=== PATIENT | female | born 1995 | race Caucasian/White ===

== ENCOUNTER 2022-06-21 12:38 | Emergency (ER) | payer BC, SELFPAY ==
[2022-06-21 13:04] VITALS: BP 120/79; PULSE 86; RESP 14; TEMP 37.1; O2SAT 97; BMI 25.7
--- NOTE | 2022-06-21 13:48 | ED_ITS ---
HPI - Anxiety General: Chief Complaint: Anxiety Stated Complaint: congestion, cough, covid positive Time Seen by Provider: 06/21/22 13:17 Source: patient Mode of arrival: ambulatory Limitations: no limitations History of Present Illness: 27-year-old female presents to the ER today for increased anxiety and shortness of breath associated with COVID. Patient reports last Friday she started not feeling well and became short of breath on Friday. Patient reports she was seen at her family doctor and tested positive for COVID. Patient reports she was given steroids and a nebulizer. Patient reports she began those however has had increased anxiety. Patient did stop the steroid this morning as she felt like it was making her feel worse. Patient reports she feels like she has something sitting on her chest. She reports her sats have been okay and her temperature has stayed down. She reports she has a mild cough. Patient feels this is more related to anxiety of knowing she has COVID and complications COVID can cause. Patient reports other than the prednisone she is taking NyQuil for symptoms. Review of Systems General: Reports: 10 or more systems reviewed and unremarkable except in HPI and below Physical Exam Const: COMMON NORMALS: no acute distress, average body habitus, patient oriented x3, no limitations, healthy appearing, alert and well nourished HENMT: COMMON NORMALS: normocephalic, external ears normal, Normal external nose present, Normal nasal mucous membranes and turbinates present and moist oral mucous membranes HEAD & SCALP: normocephalic NOSE: Normal external nose present and Normal nasal mucous membranes and turbinates present EXTERNAL EAR: Yes external ears normal Eye: COMMON NORMALS: conjunctivae normal CONJUNCTIVA: Yes conjunctivae normal Lymph: LYMPHATIC: no lymphadenopathy noted Resp: COMMON NORMALS: normal respiratory effort, No retractions, No use of accessory muscles and clear to auscultation bilaterally AUSCULTATION: clear to auscultation bilaterally Cardio: COMMON NORMALS: regular rate and regular rhythm RATE: regular rate RHYTHM: regular rhythm Extremity: COMMON NORMALS: normal to inspection and full ROM Neuro: COMMON NORMALS: patient oriented x3 SENSORIUM/ORIENTATION: Yes alert Psych: COMMON NORMALS: mental status grossly normal, Normal thought process present and cooperative THOUGHT PROCESS: Normal thought process present Skin: COMMON NORMALS: no rashes or lesions noted and no wounds GENERAL SKIN EXAM: no rashes or lesions noted Course ED course: 27-year-old female presents to the ER today after testing positive for COVID 3 days ago. Patient reports she has had increased shortness of breath but she attributes that more to anxiety. Patient was started on steroids and nebulizers on Friday however stopped the steroids today because it made her feel more anxious. Patient reports she is taking NyQuil at this time for symptoms. Patient's vitals are normal, O2 sats are 97% on room air. Patient's blood pressure is good and she is not febrile in the ER today. Vital Signs: Vital signs: Vital Signs Temperature 98.7 F 06/21/22 13:04 Pulse Rate 86 06/21/22 13:04 Respiratory Rate 14 06/21/22 13:04 Blood Pressure 120/79 06/21/22 13:04 Pulse Oximetry 97 06/21/22 13:04 MDM - Anxiety Medical Decision Making 27-year-old female presents to the ER today after testing positive for COVID 3 days ago. Patient reports she has had increased shortness of breath but she attributes that more to anxiety. Patient was started on steroids and nebulizers on Friday however stopped the steroids today because it made her feel more anxious. Patient reports she is taking NyQuil at this time for symptoms. Patient's vitals are normal, O2 sats are 97% on room air. Patient's blood pressure is good and she is not febrile in the ER today. Discussed with patient that her vitals are normal, and physical exam is unremarkable. This could be increased anxiety due to being on prednisone as that can make people irritable a nd agitated. I offered patient Vistaril which she would like to try for the increased anxiety for a few days. Recommended Mucinex 600 to 1200 mg twice daily. Patient should push fluids. Alternate Tylenol Motrin for fever pain. Follow-up with PCP in 5 to 7 days if no improvement. Return to the ER with new or worsening symptoms. Patient verbalized understanding and was in agreement with the treatment plan. Discharge Plan Discharge Patient Disposition: Home Clinical Impression: COVID-19, Acute anxiety Condition: Stable Prescriptions: New Vistaril 25 mg capsule 25 mg PO TID PRN (Reason: anxiety) Qty: 14 0RF Discharge Orders: Discharge ED (Routine); Ordered 06/21/22 Ordered By: Radha Mclean Discharge Diet: Usual diet Discharge Activity: Resume usual activity Patient Instructions: Opioid Safety Activity Restrictions/Additional Instructions: Take Vistaril as needed for anxiety. Take Mucinex, 1200 mg twice daily as discussed. Push fluids. Stop the steroid at this time. Follow-up with PCP in 7 to 10 days if no improvement. Return to the ER with new or worsening symptoms. Coding Level of Care Code ED [employer] for [employer]
== END 2022-06-21 13:55 | disposition home or self-care (01) ==
PROVIDERS: Emergency Provider Physician Assistant
DX: U07.1 COVID-19 (principal); F41.9 Anxiety disorder, unspecified
CPT/HCPCS: 99283